=== PATIENT | female | born 1965 | race African-American/Black ===

== ENCOUNTER 2021-06-20 15:23 | Outpatient (CLI) | payer OTHER | END 2021-06-20 15:24 | disposition home or self-care (01) | LOC: CSHMRI 15:23 | PROVIDERS: ATTEND Nurse Practitioner Family | DX: M54.16 Radiculopathy, lumbar region (principal); M47.816 Spondylosis without myelopathy or radiculopathy, lumbar region | CPT/HCPCS: 72148 ==